=== PATIENT | male | born 1950 | race Two or more races ===

== ENCOUNTER 2023-04-19 00:47 | Emergency (ER) | payer OTHER ==
[~2023-04-19] VITALS: Ht 180.3 cm; Wt 66.8 kg
[2023-04-19] MEDS ORDERED: cloNIDine HCL 0.1 MG TAB PO ONE (01:15)
[2023-04-19] MEDS ORDERED: TETANUS-DIPTH-ACEL PERTUSSIS 0.5ML SYR Tdap IM ONE (04:45)
[2023-04-19] MEDS ORDERED: ENALAPRILAT 1.25 MG/ML-1ML VIAL IV ONE (04:45)
[2023-04-19 05:16] LABS: Basophils # (auto) 0.1 10 ^3/uL (0-0.2); Eosinophils # (auto) 0.2 10 ^3/uL (0-0.8); Hematocrit 40.1 % (41.0-53.0); Hemoglobin 13.7 g/dL (13.5-17.5); Lymphocytes # (auto) 0.5 10 ^3/uL (0.4-5.4); Lymphocytes % (auto) 10.4 % (10.0-50.0); Mean Corpuscular Hemoglobin 32.6 pg (28.0-32.0); Mean Corpuscular Hgb Conc. 34.1 g/dL (32.0-36.0); Mean Corpuscular Volume 95.6 fL (80.0-100.0); Monocytes # (auto) 0.3 10 ^3/uL (0-1.3); Monocytes % (auto) 5.2 % (0.0-12.0); Neutrophils # (auto) 3.9 10 ^3/uL (1.6-8.6); Neutrophils % (auto) 79.4 % (37.0-80.0); Red Cell Distribution Width 14.8 % (11.8-14.3)
[2023-04-19 05:26] LABS: INR 1.12 (0.9-1.15); Partial Thromboplastin Time 30.7 SEC (24.5-34.5); Prothrombin Time 11.7 sec (9.3-11.8)
[2023-04-19 05:39] LABS: Alanine Aminotransferase 22 U/L (7-40); Alkaline Phosphatase 114 U/L (46-116); Anion Gap 4 (5-15); Aspartate Aminotransferase 41 U/L (13-40); BUN/Creatinine Ratio 10.4 (10.0-20.0); Bilirubin, Total 1.2 mg/dL (0.2-1.0); Blood Urea Nitrogen 11 mg/dL (9-23); Calcium 8.7 mg/dL (8.5-10.1); Carbon Dioxide 30 mmol/L (20-30); Chloride 105 mmol/L (98-107); Glucose 97 mg/dL (74-106); Sodium 139 mmol/L (136-145); Total Protein 6.6 g/dL (5.7-8.2)
[2023-04-19 06:27] VITALS: BP 143/52; TEMP 98.2
[2023-04-19 06:30] VITALS: PULSE 53; RESP 18; O2SAT 95
[2023-04-19] MEDS ORDERED: hydrALAZINE HCL 20 MG/ML VL IV PRN (09:30)
[2023-04-19] MEDS ORDERED: DOCUSATE SOD 100 MG CAP PO PRN (09:30)
[2023-04-19] MEDS ORDERED: ACETAMINOPHEN 325 MG TAB PO PRN (09:30)
[2023-04-19] MEDS ORDERED: HYDROcodone-ACET 5/325MG TAB PO PRN (09:30)
[2023-04-19] MEDS ORDERED: ONDANSETRON HCL 4 MG/2 ML VIAL IV PRN (09:30)
[2023-04-19] MEDS ORDERED: ZINC SULFATE 220mg CAP or TAB PO SCH (10:00)
[2023-04-19] MEDS ORDERED: ASCORBIC ACID 500 MG TAB PO SCH (10:00)
[2023-04-19] MEDS ORDERED: LISINOPRIL 20 MG TAB PO SCH (10:00)
[2023-04-19] MEDS ORDERED: SODIUM CHLOR 0.9% PF (SALINE LOCK) 10ML VIAL/SYR IV SCH (14:00)
== END 2023-04-19 09:47 | disposition home or self-care (01) ==
LOC: ER 00:47
DX: S09.8XXA Other specified injuries of head, initial encounter (principal); I10 Essential (primary) hypertension; Z79.01 Long term (current) use of anticoagulants; W18.09XA Striking against other object with subsequent fall, initial encounter; Y93.89 Activity, other specified; Y92.89 Other specified places as the place of occurrence of the external cause; Y99.8 Other external cause status
CPT/HCPCS: 36415; 70450; 70486; 71045; 73140; 80053; 83735; 84484; 85025; 85610; 85730

== ENCOUNTER 2024-04-16 17:40 | Inpatient (IN) | payer OTHER ==
[~2024-04-16] VITALS: Ht 182.9 cm; Wt 58.4 kg
[2024-04-16 18:49] LABS: Basophils # (auto) 0 10 ^3/uL (0-0.2); Basophils % (auto) 0.6 % (0.0-2.0); Eosinophils # (auto) 0.1 10 ^3/uL (0-0.8); Eosinophils % (auto) 1.3 % (0.0-7.0); Hematocrit 39.9 % (41.0-53.0); Hemoglobin 13.5 g/dL (13.5-17.5); Lymphocytes # (auto) 1.3 10 ^3/uL (0.4-5.4); Lymphocytes % (auto) 19.1 % (10.0-50.0); Mean Corpuscular Hemoglobin 32.8 pg (28.0-32.0); Mean Corpuscular Hgb Conc. 33.9 g/dL (32.0-36.0); Mean Corpuscular Volume 96.8 fL (80.0-100.0); Monocytes # (auto) 0.5 10 ^3/uL (0-1.3); Monocytes % (auto) 6.8 % (0.0-12.0); Neutrophils # (auto) 5.1 10 ^3/uL (1.6-8.6); Neutrophils % (auto) 72.2 % (37.0-80.0); Platelet Count (auto) 343 10^3/uL (140-450); Red Blood Cells 4.12 10^6/uL (4.5-5.90); Red Cell Distribution Width 14.7 % (11.8-14.3)
[2024-04-16 19:09] LABS: Alanine Aminotransferase 24 U/L (7-40); Alkaline Phosphatase 347 U/L (46-116); Anion Gap 8 (5-15); Blood Urea Nitrogen 20 mg/dL (9-23); Calcium 9.2 mg/dL (8.7-10.4); Carbon Dioxide 26 mmol/L (20-31); Chloride 110 mmol/L (98-107); Glucose 119 mg/dL (74-106); Potassium 4.7 mmol/L (3.5-5.1); Sodium 144 mmol/L (136-145)
[2024-04-16 19:10] LABS: Albumin 3.3 g/dL (3.2-4.8); Aspartate Aminotransferase 38 U/L (13-40); BUN/Creatinine Ratio 21.1 (10.0-20.0); Total Protein 6.5 g/dL (5.7-8.2)
--- NOTE | 2024-04-16 20:21 | DVH ---
EXAM: CT HEAD WITHOUT CONTRAST INDICATION: aloc TECHNIQUE: CT of the head without intravenous contrast. Radiation Dose : 1. Head: CT Dose: CTDI volume is 64.67 mGy. Dose-length product is 1144.57 mGy*cm The dose indicators for CT are the volume Computed Tomography (CT) Dose Index (CTDIvol) and the Dose Length Product (DLP), and are measured in units of mGy and mGy-cm, respectively. These indicators are not patient dose, but values generated from the CT scanner acquisition factors. The report includes radiation exposure data for exposures received during this examination. COMPARISON: CT HEAD WITHOUT CONTRAST on DOS: 04/18/23 FINDINGS: There is no evidence of acute intracranial hemorrhage, extra-axial collection, mass effect, midline s hift, herniation or hydrocephalus. The ventricles, sulci and cisterns are age appropriate. The amaya-white differentiation is intact. Patchy periventricular and subcortical white matter hypoattenuation is nonspecific but may be related to small vessel ischemic disease. The visualized paranasal sinuses and mastoid air cells are clear. The surrounding soft tissues and osseous structures are unremarkable. IMPRESSION: 1. No acute intracranial abnormality. Radiation optimization: All CT scans at this facility use at least one of these dose optimization miriam hniques: automated exposure control mA and/or kV adjustment per patient size (includes targeted exam s where dose is matched to clinical indication) or iterative reconstruction.
[2024-04-16 22:00] VITALS: PULSE 83; RESP 12
[2024-04-16 23:09] LABS: Urine Bacteria None Seen /hpf (None Seen)
[2024-04-16 23:37] LABS: Amphetamine Screen, Urine Neg (NEGATIVE); Barbiturate Scree,Urine Neg (NEGATIVE); Benzodiazephine Screen, Urine Neg (NEGATIVE); Cannabinoid Screen, Urine Neg (NEGATIVE); Cocaine Screen, Urine Neg (NEGATIVE); Opiate Scree,Urine Pos (NEGATIVE); Phencyclidine Screen, Urine Neg (NEGATIVE); Urine Blood Negative /uL (Negative); Urine Clarity Clear (Clear); Urine Color Yellow (Yellow); Urine Mucus FEW (None Seen); Urine Protein, UAD Negative (Negative); Urine Specific Gravity 1.025 (1.001-1.035); Urine Urobilinogen Normal (Negative); Urine WBC <1 /hpf (0 - 3); Urine pH 5.5 (5.0-9.0)
--- NOTE | 2024-04-16 23:49 | DVH ---
CHEST RADIOGRAPH Indication: gen weak Technique: Single frontal view of the chest was obtained COMPARISON: XY CHEST PORTABLE on DOS: 04/19/23 FINDINGS: Lines and Tubes: None Lungs: Questionable mild interstitial pulmonary edema. Pleura: No effusion. No pneumothorax. Cardiomediastinal contours: Mild cardiomegaly. Bones: Unremarkable IMPRESSION: 1. Questionable mild interstitial pulmonary edema.
--- NOTE | 2024-04-17 00:52 | ED.PDOC ---
Altered Mental Status HPI Comments 73-year-old female brought in by EMS. EMS was called out to the home by family members who stated patient has been lethargic in his energy level has been decreasing over the last few days. They state it may have been going on approximate one week. With further questioning by EMS they state it could has been going on for almost a month. Patient was slow to respond, A&O x2, family states no injury. They are in control of his medications, they dispense him his medications as they have been prescribed, they do give him an opiate narcotic for his pain. Chief Complaint: General Weakness Time Seen by MD: 17:51 Primary Care Provider: unknown Reviewed Notes: Nurses Notes Allergies: Coded Allergies: NO KNOWN ALLERGIES (Unverified , 04/19/23) Information Source: Patient Mode of Arrival: EMS Past Medical History PAST MEDICAL HISTORY: HTN Constitutional: reports: fatigue, weakness; denies: chills, diaphoresis, fever, malaise, sweats, others EENTM: denies: blurred vision, double vision, ear bleeding, ear discharge, ear drainage, ear pain, ear ringing, eye pain, eye redness, hearing loss, mouth pain, mouth swelling, nasal discharge, nose bleeding, nose congestion, nose pain, photophobia, tearing, throat pain, throat swelling, voice changes, others Respiratory: denies: cough, hemoptysis, orthopnea, SOB at rest, shortness of breath, SOB with excertion, stridor, wheezing, others Cardiovascular: denies: chest pain, dizzy spells, diaphoresis, Dyspnea on exertion, edema, irregular heart beat, left arm pain, lightheadedness, palpitations, PND, syncope, others Gastrointestinal: denies: abdomen distended, abdominal pain, blood streaked bowels, constipated, diarrhea, dysphagia, difficulty swallowing, hematemesis, melena, nausea, poor appetite, poor fluid intake, rectal bleeding, rectal pain, vomiting, others Genitourinary: denies: burning, dysuria, flank pain, frequency, hematuria, incontinence, penile discharge, penile sore, pain, testicle pain, testicle swelling, urgency, others Neurological: denies: dizziness, fainting, headache, left sided numbness, left sided weakness, numbness, paresthesia, pre-existing deficit, right sided numbness, right sided weakness, seizure, speech problems, tingling, tremors, we akness, others Musculoskeletal: denies: back pain, gout, joint pain, joint swelling, muscle pain, muscle stiffness, neck pain, others Integumetry: denies: bruises, change in color, change in hair/nails, dryness, laceration, lesions, lumps, rash, wounds, others Allergic/Immunocompromised: denies: Difficulty Healing, Frequent Infections, Hives, Itching, others Hematologic/Lymphatic: denies: anemia, blood clots, easy bleeding, easy bruising, swollen glands, others Endocrine: denies: excessive hunger, excessive sweating, excessive thirst, excessive urination, flushing, intolerance to cold, intolerance to heat, unexplained weight gain, unexplained weight loss, others Psychiatric: denies: anxiety, bipolar disorder, depression, hopeless, panic disorder, schizophrenia, sleepless, suicidal, others Physical Exam General Appearance: Mild Distress, Thin HEENT: Normal ENT Inspection, Pharynx Normal, TMs Normal Neck: Full Range of Motion, Non-Tender, Normal, Normal Inspection Respiratory: Chest Non-Tender, Lungs Clear, No Accessory Muscle Use, No Respiratory Distress, Normal Breath Sounds Cardiovascular: No Edema, No JVD, No Murmur, No Gallop, Normal Peripheral Pulses, Regular Rate/Rhythm Breast Exam: Deferred Gastrointestinal: No Organomegaly, Non Tender, No Pulsatile Mass, Normal Bowel Sounds, Soft Genitalia: Deferred Pelvic: Deferred Rectal: Deferred Extremities: No calf tenderness, Normal capillary refill, Normal inspection, Normal range of motion, Non-tender, No pedal edema Musculoskeletal : Apperance: Normal Neurologic: Disoriented, No Motor Deficits Cerebellar Function: NOT DONE Reflexes: Normal Skin: Dry, Normal Color, Warm Lymphatic: No Adenopathy Was a procedure done? Was a procedure done?: No Differential Diagnosis (ALOC) Differential Diagnosis: Dehydration, Hypoglycemia, Seizure, Closed Head Injury, Mass Lesion, Drug Overdose, ETOH Intoxication X-Ray, Labs, Meds, VS Vital Signs Date Time Temp Pulse Resp B/P (MAP) Pulse Ox O2 Delivery O2 Flow Rate FiO2 04/16/24 22:00 83 12 Nasal Cannula* 3 32 04/16/24 21:18 98.8 100 19 159/99 (119) 96 98.8 04/16/24 18:56 85 04/16/24 17:49 98.0 76 16 145/86 (105) 97 Lab Test 04/16/24 23:04 04/16/24 19:29 04/16/24 18:32 Range/Units Urine Color Yellow Yellow Urine Clarity Clear Clear Urine pH 5.5 5.0-9.0 Urine Specific [place] 1.025 1.001-1.035 Urine Protein Negative Negative Urine Ketones Negative Negative Urine Blood Negative Negative /uL Urine Nitrite Negative Negative Urine Bilirubin Negative Negative Urine Urobilinogen Normal Negative mg/dL Urine Leukocyte Esterase Negative Negative /uL Urine RBC 1 0 - 3 /hpf Urine WBC <1 0 - 3 /hpf Urine Squamous Epithelial Cells None seen <5 /hpf Urine Bacteria None seen None Seen /hpf Urine Mucus Few None Seen Urine Glucose Normal Normal mg/dL Urine Opiates Screen Pos NEGATIVE Urine Fentanyl Screen Neg NEGATIVE Urine Barbiturates Screen Neg NEGATIVE Urine Phencyclidine Screen Neg NEGATIVE Urine Amphetamines Screen Neg NEGATIVE Urine Benzodiazepines Screen Neg NEGATIVE Urine Cocaine Screen Neg NEGATIVE Urine Cannabinoids Screen Neg NEGATIVE Troponin I High Sensitivity 32 32 </=54 ng/L White Blood Count 7.0 4.4-10.8 10^3/uL Red Blood Count 4.12 L 4.5-5.90 10^6/uL Hemoglobin 13.5 13.5-17.5 g/dL Hematocrit 39.9 L 41.0-53.0 % Mean Corpuscular Volume 96.8 80.0-100.0 fL Mean Corpuscular Hemoglobin 32.8 H 28.0-32.0 pg Mean Corpuscular Hemoglobin Concent 33.9 32.0-36.0 g/dL Red Cell Distribution Width 14.7 H 11.8-14.3 % Platelet Count 343 140-450 10^3/uL Mean Platelet Volume 8.3 6.9-10.8 fL Neutrophils (%) (Auto) 72.2 37.0-80.0 % Lymphocytes (%) (Auto) 19.1 10.0-50.0 % Monocytes (%) (Auto) 6.8 0.0-12.0 % Eosinophils (%) (Auto) 1.3 0.0-7.0 % Basophils (%) (Auto) 0.6 0.0-2.0 % Neutrophils # (Auto) 5.1 1.6-8.6 10 ^3/uL Lymphocytes # (Auto) 1.3 0.4-5.4 10 ^3/uL Monocytes # (Auto) 0.5 0-1.3 10 ^3/uL Eosinophils # (Auto) 0.1 0-0.8 10 ^3/uL Basophils # (Auto) 0 0-0.2 10 ^3/uL Nucleated Red Blood Cells 0.0 % Sodium Level 144 136-145 mmol/L Potassium Level 4.7 3.5-5.1 mmol/L Chloride Level 110 H 98-107 mmol/L Carbon Dioxide Level 26 20-31 mmol/L Anion Gap 8 5-15 Blood Urea Nitrogen 20 9-23 mg/dL Creatinine 0.95 0.700-1.30 mg/dL Glomerular Filtration Rate Calc 83 >90 mL/min BUN/Creatinine Ratio 21.1 H 10.0-20.0 Serum Glucose 119 H 74-106 mg/dL Calcium Level 9.2 8.7-10.4 mg/dL Total Bilirubin 1.0 0.2-1.0 mg/dL Aspartate Amino Transferase (AST) 38 13-40 U/L Alanine Aminotransferase (ALT) 24 7-40 U/L Alkaline Phosphatase 347 H 46-116 U/L Ammonia < 10 L 11-32 umol/L Total Protein 6.5 5.7-8.2 g/dL Albumin 3.3 3.2-4.8 g/dL X-Ray, Labs, Meds, VS Comment Patient will be admitted for altered mental status, Recommend nausea consult Imaging: X-rays and CT scans were reviewed and interpreted by this provider, imaging shows no fractures and no pathological disease. Pending radiology review. Laboratory: Labs reviewed and interpreted by this provider. No significant abnormalities noted. Patient has prior medical visits reviewed. Med reconciliation performed Vital signs reviewed Time of 1ST Reevaluation: 00:52 Reevaluation 1ST: Unchanged Patient Education/Counseling: Diagnosis, Treatment Family Education/Counseling: Diagnosis, Treatment Departure 1 Departure Time of Disposition: 00:51 Impression: Primary Impression: Malignant hypertension Additional Impression: Altered mental status Qualified Codes: R41.0 - Disorientation, unspecified Disposition: ADMITTED INPATIENT Condition: Fair Critical Care Note Critical Care Time?: No Stability Stability form required: No Heart Score Heart Score: Heart Score Response (Comments) Value History N/A 0 EKG N/A 0 Age N/A 0 Risk Factors N/A 0 Troponin N/A 0 Total 0 RADHA MANN Apr 17, 2024 00:52
[2024-04-17] MEDS ORDERED: ONDANSETRON HCL 4 MG/2 ML VIAL IV PRN (04:00)
[2024-04-17] MEDS: METOPROLOL SUCCINATE XL 50 MG TAB PO ONE (04:09)
[2024-04-17] MEDS: cloNIDine HCL 0.1 MG TAB PO PRN (04:10)
--- NOTE | 2024-04-17 07:03 | DVHHP2 ---
History of Present Illness Reason for Visit: Altered mental status History of Present Illness 73-year-old male presents for evaluation of altered mental status. Patient was noted to be progressively become lethargic by family members over the past couple of days. Currently patient is alert oriented x3. Denies headache or blurred vision. No unilateral weakness. He was noted to be hypertensive on arrival in the 180s. Denies chest pain or palpitations. No other acute complaints. Past Medical History Hypertension Past Surgical History Denies Family History Noncontributory Smoke: No ALCOHOL: none Drugs: None Review of Systems Review of Systems Review of systems are currently negative otherwise dressing HPI. Allergies: Coded Allergies: NO KNOWN ALLERGIES (Unverified , 04/19/23) Medications Current Medications Medications Dose Ordered Sig/Tab Route Start Time Stop Time Status Last Admin Dose Admin Lisinopril 10 mg DAILY PO 04/17/24 10:00 Clonidine HCl 0.1 mg Q6HP PRN PO 04/17/24 04:00 04/17/24 04:10 0.1 MG Ondansetron HCl 4 mg Q4HP PRN IV 04/17/24 04:00 Enoxaparin Sodium 40 mg DAILY SC 04/17/24 10:00 Acetaminophen 650 mg Q6HP PRN PO 04/17/24 04:00 Exam Vital Signs Vital Signs Date Time Temp Pulse Resp B/P (MAP) Pulse Ox O2 Delivery O2 Flow Rate FiO2 04/17/24 06:00 143/70 04/17/24 06:00 83 19 04/17/24 02:00 97 04/16/24 22:00 Nasal Cannula* 3 32 04/16/24 21:18 98.8 98.8 Exam Gen: 73-year-old male in no apparent distress Skin: Warm, dry, normal color and texture, no rash. HEENT: Normocephalic atraumatic, mucous membranes moist and pink. Neck: Cervical and supraclavicular nodes normal without enlargement, trachea is midline, thyroid gland is normal without masses. Pulmonary: Clear to auscultation and percussion bilaterally. Cardiac: Regular rate and rhythm. No murmur Abdomen: Soft, nontender, nondistended, bowel sounds present all 4 quadrants, no guarding, no rigidity, no organomegaly. Extremities: No cyanosis, clubbing, no edema Neuro: Cranial nerves II through XII grossly intact, normal affect and speech, no focal motor deficits. Labs/Xrays ORDERING PHYSICIAN: RADHA MANN PATIENT ADMITTING CLERK PROCEDURE(s): HWOCT - HEAD WITHOUT CONTRAST REASON: aloc ORDER NUMBER(s): [id number], ACCESSION NUMBER(s): [id number] EXAM: CT HEAD WITHOUT CONTRAST INDICATION: aloc TECHNIQUE: CT of the head without intravenous contrast. Radiation Dose : 1. Head: CT Dose: CTDI volume is 64.67 mGy. Dose-length product is 1144.57 mGy*cm The dose indicators for CT are the volume Computed Tomography (CT) Dose Index (CTDIvol) and the Dose Length Product (DLP), and are measured in units of mGy and mGy-cm, respectively. These indicators are not patient dose, but values generated from the CT scanner acquisition factors. The report includes radiation exposure data for exposures received during this examination. COMPARISON: CT HEAD WITHOUT CONTRAST on DOS: 04/18/23 FINDINGS: There is no evidence of acute intracranial hemorrhage, extra-axial collection, mass effect, midline shift, herniation or hydrocephalus. The ventricles, sulci and cisterns are age appropriate. The amaya-white differentiation is intact. Patchy periventricular and subcortical white matter hypoattenuation is nonspecific but may be related to small vessel ischemic disease. The visualized paranasal sinuses and mastoid air cells are clear. The surrounding soft tissues and osseous structures are unremarkable. IMPRESSION: 1. No acute intracranial abnormality. Radiation optimization: All CT scans at this facility use at least one of these dose optimization techniques: automated exposure control mA and/or kV adjustmen t per patient size (includes targeted exams where dose is matched to clinical indication) or iterative reconstruction. RING PHYSICIAN: RADHA MANN PATIENT ADMITTING CLERK PROCEDURE(s): CXR1 - CHEST XRAY 1 VIEW REASON: gen weak ORDER NUMBER(s): [id number], ACCESSION NUMBER(s): [id number] CHEST RADIOGRAPH Indication: gen weak Technique: Single frontal view of the chest was obtained COMPARISON: XY CHEST PORTABLE on DOS: 04/19/23 FINDINGS: Lines and Tubes: None Lungs: Questionable mild interstitial pulmonary edema. Pleura: No effusion. No pneumothorax. Cardiomediastinal contours: Mild cardiomegaly. Bones: Unremarkable IMPRESSION: 1. Questionable mild interstitial pulmonary edema. Labs Test 04/17/24 04:11 04/16/24 23:04 04/16/24 19:29 04/16/24 18:32 Range/Units B-Type Natriuretic Peptide 881.24 0-100 pg/mL Urine Color Yellow Yellow Urine Clarity Clear Clear Urine pH 5.5 5.0-9.0 Urine Specific [place] 1.025 1.001-1.035 Urine Protein Negative Negative Urine Ketones Negative Negative Urine Blood Negative Negative /uL Urine Nitrite Negative Negative Urine Bilirubin Negative Negative Urine Urobilinogen Normal Negative mg/dL Urine Leukocyte Esterase Negative Negative /uL Urine RBC 1 0 - 3 /hpf Urine WBC <1 0 - 3 /hpf Urine Squamous Epithelial Cells None seen <5 /hpf Urine Bacteria None seen None Seen /hpf Urine Mucus Few None Seen Urine Glucose Normal Normal mg/dL Urine Opiates Screen Pos NEGATIVE Urine Fentanyl Screen Neg NEGATIVE Urine Barbiturates Screen Neg NEGATIVE Urine Phencyclidine Screen Neg NEGATIVE Urine Amphetamines Screen Neg NEGATIVE Urine Benzodiazepines Screen Neg NEGATIVE Urine Cocaine Screen Neg NEGATIVE Urine Cannabinoids Screen Neg NEGATIVE Troponin I High Sensitivity 32 </=54 ng/L White Blood Count 7.0 4.4-10.8 10^3/uL Red Blood Count 4.12 L 4.5-5.90 10^6/uL Hemoglobin 13.5 13.5-17.5 g/dL Hematocrit 39.9 L 41.0-53.0 % Mean Corpuscular Volume 96.8 80.0-100.0 fL Mean Corpuscular Hemoglobin 32.8 H 28.0-32.0 pg Mean Corpuscular Hemoglobin Concent 33.9 32.0-36.0 g/dL Red Cell Distribution Width 14.7 H 11.8-14.3 % Platelet Count 343 140-450 10^3/uL Mean Platelet Volume 8.3 6.9-10.8 fL Neutrophils (%) (Auto) 72.2 37.0-80.0 % Lymphocytes (%) (Auto) 19.1 10.0-50.0 % Monocytes (%) (Auto) 6.8 0.0-12.0 % Eosinophils (%) (Auto) 1.3 0.0-7.0 % Basophils (%) (Auto) 0.6 0.0-2.0 % Neutrophils # (Auto) 5.1 1.6-8.6 10 ^3/uL Lymphocytes # (Auto) 1.3 0.4-5.4 10 ^3/uL Monocytes # (Auto) 0.5 0-1.3 10 ^3/uL Eosinophils # (Auto) 0.1 0-0.8 10 ^3/uL Basophils # (Auto) 0 0-0.2 10 ^3/uL Nucleated Red Blood Cells 0.0 % Sodium Level 144 136-145 mmol/L Potassium Level 4.7 3.5-5.1 mmol/L Chloride Level 110 H 98-107 mmol/L Carbon Dioxide Level 26 20-31 mmol/L Anion Gap 8 5-15 Blood Urea Nitrogen 20 9-23 mg/dL Creatinine 0.95 0.700-1.30 mg/dL Glomerular Filtration Rate Calc 83 >90 mL/min BUN/Creatinine Ratio 21.1 H 10.0-20.0 Serum Glucose 119 H 74-106 mg/dL Calcium Level 9.2 8.7-10.4 mg/dL Total Bilirubin 1.0 0.2-1.0 mg/dL Aspartate Amino Transferase (AST) 38 13-40 U/L Alanine Aminotransferase (ALT) 24 7-40 U/L Alkaline Phosphatase 347 H 46-116 U/L Ammonia < 10 L 11-32 umol/L Total Protein 6.5 5.7-8.2 g/dL Albumin 3.3 3.2-4.8 g/dL Assessment/Plan Assessment/Plan Assessment Hypertensive crisis ? Toxic encephalopathy Pulmonary edema Plan Admit the patient to [facility] to the hospitalist Resume home medications Echocardiogram pending Continue treatment per orders. Plan discussed with: Patient My Orders Orders - STAR JARAMILLO AGACNP Procedure Category Date Status Time Lisinopril Tablet PHA 04/17/24 In Process (Zestril Tablet) 10:00 Echo 2d Mode Cardiac US 04/17/24 Logged DOP 03:50 Clonidine Hcl Tablet PHA 04/17/24 In Process (Catapres Tablet) 04:00 Basic Metabolic Panel LAB 04/18/24 Verified 04:00 Admit ADMIT 04/17/24 Transmitted 03:50 Ondansetron Hcl PHA 04/17/24 In Process (Zofran) 04:00 Enoxaparin Sodium PHA 04/17/24 In Process (Lovenox) 10:00 Cardiac DIET 04/17/24 Transmitted Diet-2gna,Lofat,Lochol Breakfast Condition: Stable AVINASH 04/17/24 In Process 03:50 Acetaminophen Tablet PHA 04/17/24 In Process (Tylenol Tablet) 04:00 Bedrest With Bathroom AVINASH 04/17/24 In Process Privileg 03:50 Date of Service: Apr 17, 2024 Billing Provider: STAR JARAMILLO Common Visit Codes: 20324-[id number] INP/OBS CARE (HIGH) STAR JARAMILLO Apr 17, 2024 07:03
[2024-04-17 08:30] VITALS: PULSE 83; RESP 17; O2SAT 96
[2024-04-17] MEDS: LISINOPRIL 5 MG TAB PO SCH (11:47)
[2024-04-17] MEDS: ENOXAPARIN SOD 40 MG/0.4 ML SYRINGE SC SCH (11:48)
[2024-04-17] MEDS: FUROSEMIDE 20 MG TAB PO SCH (11:48)
[2024-04-17] MEDS: ACETAMINOPHEN 325 MG TAB PO PRN (11:49)
--- NOTE | 2024-04-17 14:38 | ECG ---
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
--- NOTE | 2024-04-17 14:44 | ECG ---
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
--- NOTE | 2024-04-17 14:49 | DVHSR ---
APPROVED REPORT EXAM: Two-dimensional and M-mode echocardiogram with Doppler and color Doppler. Blood Pressure: 162/96 mmHg INDICATION EF Surgery/Intervention CABG: RISK FACTORS Height: 6', Weight: 165 DIMENSIONS LVDd5.4 (3.8-5.7cm)LA (2D)4.8 (1.9-4.0cm)Aortic Root3.8 (2.0-3.7cm) LVDs4.4 (2.5-4.0cm)LA (MM) (1.9-4.0cm)Aortic Cusp Exc1.8 (1.5-2.0cm) EF (%) 40.0 (55-70%)Rt. Atrium5.1 (1.9-4.0cm)Asc. Aorta cm IVSd1.4 (0.7-1.1cm)RV (D) (1.8-2.4cm) PWd1.2 (0.7-1.1cm) Mitral Valve MitralMitral Stenosis E wave1.30m/sMV Mean GR.mmHg A wave0.60m/sMV Peak GR.mmHg E/A ratio2.22D MVAcm2 Aortic Valve Aortic ValveAortic Stenosis V10.80m/[place] Mean GR.4mmHg V21.30m/[place] Peak GR.7mmHg LVOT Diameter2.2 (1.8-2.4cm)Doppler AVA2.34cm2 AI P 1/2 Tbuf449.80ms Tricuspid Valve TR Velocity3.20m/s [id number] Conclusion Moderately to severely dilated left ventricle. Moderately reduced left ventricular systolic function estimated ejection fraction 40-35%. In a global fashion. There is a grade 1 diastolic dysfunction. Moderately dilated right ventricle. Moderately reduced right ventricular systolic function. Mild-to -moderately increased right ventricular systolic [id number] mm of mercury. Moderately dilated right and left atria. There is mild mitral valve thickening with mild mitral valve regurgitation. There is mild aortic valve thickening with a mild aortic valve regurgitation. There is mild tricuspid valve regurgitation. The pulmonary valve is grossly normal. No pericardial effusion.
--- NOTE | 2024-04-17 15:44 | DVHPN2 ---
Subjective Patient denies any symptoms at this time. Reviewed: Care Plan, H&P, Labs, Medications, Previous Orders Changes from previous H/P or p: No Changes General: Per HPI Objective Vitals Vital Signs Date Time Temp Pulse Resp B/P (MAP) Pulse Ox O2 Delivery O2 Flow Rate FiO2 04/17/24 11:48 172/77 04/17/24 09:00 89 20 98 04/17/24 08:30 Room Air* 0 21 04/16/24 21:18 98.8 98.8 General Appearance: Alert, Oriented X3, Cooperative, No acute distress HEENT: Atraumatic, PERRLA Lungs: Clear to auscultation, Normal air movement Cardiovascular: Normal S1, Normal S2, Other (Atrial flutter with controlled rate) Abdomen: Normal bowel sounds, Soft, No tenderness Musculoskeletal: Normal sensory function, Normal motor function Neuro: Normal gait, Normal speech Psych/Mental Status: Mental status NL, Mood NL Medications Current Medications Medications Dose Ordered Sig/Tab Route Start Time Stop Time Status Last Admin Dose Admin Lisinopril 10 mg DAILY PO 04/17/24 10:00 04/17/24 11:47 10 MG Clonidine HCl 0.1 mg Q6HP PRN PO 04/17/24 04:00 04/17/24 04:10 0.1 MG Ondansetron HCl 4 mg Q4HP PRN IV 04/17/24 04:00 Enoxaparin Sodium 40 mg DAILY SC 04/17/24 10:00 04/17/24 11:48 40 MG Acetaminophen 650 mg Q6HP PRN PO 04/17/24 04:00 04/17/24 11:49 650 MG Furosemide 20 mg DAILY PO 04/17/24 10:00 04/17/24 11:48 20 MG Metoprolol Succinate 25 mg DAILY PO 04/17/24 14:45 UNV Furosemide 20 mg DAILY PO 04/18/24 10:00 UNV Empaglifozin 10 mg DAILY PO 04/18/24 10:00 UNV Laboratory Results Laboratory Tests 04/16/24 18:32 Chemistry Test 04/16/24 18:32 Albumin 3.3 g/dL (3.2-4.8) Calcium Level 9.2 mg/dL (8.7-10.4) Total Protein 6.5 g/dL (5.7-8.2) Cardiac Markers Test 04/17/24 04:11 B-Type Natriuretic Peptide 881.24 pg/mL (0-100) LFT Test 04/16/24 18:32 Alanine Aminotransferase (ALT) 24 U/L (7-40) Alkaline Phosphatase 347 U/L (46-116) H Aspartate Amino Transferase (AST) 38 U/L (13-40) Total Bilirubin 1.0 mg/dL (0.2-1.0) Urinalysis Test 04/16/24 23:04 Urine Color Yellow (Yellow) Urine Clarity Clear (Clear) Urine pH 5.5 (5.0-9.0) Urine Specific [place] 1.025 (1.001-1.035) Urine Protein Negative (Negative) Urine Ketones Negative (Negative) Urine Blood Negative /uL (Negative) Urine Nitrite Negative (Negative) Urine Bilirubin Negative (Negative) Urine Urobilinogen Normal mg/dL (Negative) Urine Leukocyte Esterase Negative /uL (Negative) Urine RBC 1 /hpf (0 - 3) Urine WBC <1 /hpf (0 - 3) Urine Squamous Epithelial Cells None seen /hpf (<5) Urine Bacteria None seen /hpf (None Seen) Urine Mucus Few (None Seen) Urine Glucose Normal mg/dL (Normal) Labs and/or images reviewed: Labs reviewed by me, Image(s) reviewed by me Assessment/Plan Assessment/Plan Impression: -toxic metabolic encephalopathy, probable unintentional overdose on prescribed medications -chronic pain syndrome -coronary artery disease with previous CABG -atrial flutter -probable acute on chronic systolic heart failure -accelerated hypertension Plan: -cardiology consultation for decompensated heart failure -diuresis -rate control with Toprol-XL -restart Eliquis -echocardiogram: Results reviewed -restart pain medication now the patient was alert and oriented -start Jardiance -repeat labs and chest x-ray in a.m. Total time spent with patient discussing and formulating plan of care: 35 minutes. This medical document was created using an electronic medical record system with [employer] dictation system. Although this document has been carefully reviewed, there may still be some phonetic and typographical errors. These areas are purely typographical due to imperfections of the software programs, and do not reflect any compromise in the patient's medical care. Plan discussed with: Patient, Other (RN) My Orders Orders - LIAT IGNACIO [employer]SP[employer]ER COLUMNIST Procedure Category Date Status Time Metoprolol Xl PHA 04/17/24 Logged Succinate (Toprol Xl) 14:45 Furosemide Tablet PHA 04/18/24 Logged (Lasix Tablet) 10:00 * Cardiology Consult CONS 04/17/24 Transmitted 14:42 Empagliflozin PHA 04/18/24 Logged (Jardiance) 10:00 Date of Service: Apr 17, 2024 Billing Provider: LIAT IGNACIO NP Common Visit Codes: [id number] INP/OBS CARE(HIGH) LIAT IGNACIO NP Apr 17, 2024 15:44
--- NOTE | 2024-04-17 16:54 | DVHINCON2 ---
Date Seen: Apr 17, 2024 Referring Physician Kari Santoyo NP Reason for Consultation Heart failure decompensation History of Present Illness This is a 73-year-old gentleman who was brought into the hospital by his family with altered mental status and lethargy for the past one week or so. On presentation his blood pressure was elevated at 180 systolic. He is known to have coronary artery bypass graft surgery x5 many years back. Also known to have chronic paroxysmal atrial fibrillation for which he is on rate-controlling strategy with the metoprolol as well as Eliquis5 mg twice daily. Also suffers from hypertension as well as hyperlipidemia, who has chronic pain for which he takes multiple medications including codeine and acetaminophen. His initial workup including a CT scan of the brain which was negative for acute brain insult. However his tox screen came back positive for opioid. Patient lab works shows mildly elevated BNP at 800. But negative troponin his EKG shows well controlled AFib rate of 80 with nonspecific STT wave changes. Patient denies any chest pain or shortness of breath. However he is still lethargic and difficult to arouse at the bedside. Past Medical History Ischemic heart disease with a coronary artery bypass grafting x5 long time ago, history of hypertension, history of hyperlipidemia, history of atrial fibrillation for which he is on metoprolol and Eliquis5 mg twice daily. His echocardiogram for mandates most recent admission shows moderately reduced left ventricular systolic function at 45% in a global fashion. Without significant valve pathology. He has also pulmonary hypertension at 45 mm of mercury. Past Surgical History Coronary artery bypass graft surgery. Allergies: Coded Allergies: NO KNOWN ALLERGIES (Unverified , 04/19/23) Current Medications Current Medications Medications (Trade) Dose Ordered Sig/Tab Route PRN Reason Start Time Stop Time Status Last Admin Lisinopril (Zestril Tablet) 10 mg DAILY PO 04/17/24 10:00 04/17/24 11:47 Clonidine HCl (Catapres Tablet) 0.1 mg Q6HP PRN PO SBP>160 04/17/24 04:00 04/17/24 04:10 Ondansetron HCl (Zofran) 4 mg Q4HP PRN IV NAUSEA / VOMITING 04/17/24 04:00 Enoxaparin Sodium (Lovenox) 40 mg DAILY SC 04/17/24 10:00 04/17/24 11:48 Acetaminophen (Tylenol Tablet) 650 mg Q6HP PRN PO PAIN SCALE 1-3 OR TEMP>100.4 04/17/24 04:00 04/17/24 11:49 Furosemide (Lasix Tablet) 20 mg DAILY PO 04/17/24 10:00 04/17/24 11:48 Metoprolol Succinate (Toprol Xl) 25 mg DAILY PO 04/17/24 14:45 UNV Furosemide (Lasix Tablet) 20 mg DAILY PO 04/18/24 10:00 UNV Empaglifozin (Jardiance) 10 mg DAILY PO 04/18/24 10:00 UNV Apixaban (Eliquis) 5 mg BID PO 04/17/24 22:00 UNV Acetaminophen/ Hydrocodone Bitart ([place] 5/325MG Tab) 1 tab Q6HPRN PRN PO MODERATE PAIN (4-6 PAIN SCALE) 04/17/24 15:45 UNV Acetaminophen (Tylenol Tablet) 500 mg Q8HP PRN PO PAIN SCALE 1-3 OR TEMP>100.4 04/17/24 15:45 UNV Vital Signs Vital Signs Date Time Temp Pulse Resp B/P (MAP) Pulse Ox O2 Delivery O2 Flow Rate FiO2 04/17/24 13:00 78 19 148/72 (97) 97 04/17/24 08:30 Room Air* 0 21 04/16/24 21:18 98.8 98.8 Physical Exam GENERAL APPEARANCE: Patient appears cachectic very lethargic difficult to communicate with the despite multiple attempts to call him by his name. He is arousable to painful stimulus. HEENT: Normocephalic NECK: Neck supple, non-tender without lymphadenopathy, masses or thyromegaly. CARDIAC: Normal S1 and S2. No S3, S4 or murmurs. Rhythm is regular. There is no peripheral edema, cyanosis or pallor. Extremities are warm and well perfused. Capillary refill is less than 2 seconds. No carotid bruits. LUNGS: Clear to auscultation and percussion there is mild rales and rhonchi scattered throughout the chest. ABDOMEN: Positive bowel sounds. Soft, mildly distended, nontender. No guarding or rebound. No masses. MUSCULOSKELETAL: Adequately aligned spine. ROM intact spine and extremities. No joint erythema or tenderness. Normal muscular development. Normal gait. EXTREMITIES: No significant deformity or joint abnormality. No edema. Peripheral pulses intact. No varicosities. NEUROLOGICAL: CN II-XII intact. Strength and sensation symmetric and intact throughout. Reflexes 2+ throughout. Cerebellar testing normal. SKIN: Skin normal color, texture and turgor with no lesions or eruptions. Labs/Diagnostic Data Labs Test 04/17/24 04:11 04/16/24 23:04 04/16/24 19:29 04/16/24 18:32 Range/Units B-Type Natriuretic Peptide 881.24 0-100 pg/mL Urine Color Yellow Yellow Urine Clarity Clear Clear Urine pH 5.5 5.0-9.0 Urine Specific [place] 1.025 1.001-1.035 Urine Protein Negative Negative Urine Ketones Negative Negative Urine Blood Negative Negative /uL Urine Nitrite Negative Negative Urine Bilirubin Negative Negative Urine Urobilinogen Normal Negative mg/dL Urine Leukocyte Esterase Negative Negative /uL Urine RBC 1 0 - 3 /hpf Urine WBC <1 0 - 3 /hpf Urine Squamous Epithelial Cells None seen <5 /hpf Urine Bacteria None seen None Seen /hpf Urine Mucus Few None Seen Urine Glucose Normal Normal mg/dL Urine Opiates Screen Pos NEGATIVE Urine Fentanyl Screen Neg NEGATIVE Urine Barbiturates Screen Neg NEGATIVE Urine Phencyclidine Screen Neg NEGATIVE Urine Amphetamines Screen Neg NEGATIVE Urine Benzodiazepines Screen Neg NEGATIVE Urine Cocaine Screen Neg NEGATIVE Urine Cannabinoids Screen Neg NEGATIVE Troponin I High Sensitivity 32 </=54 ng/L White Blood Count 7.0 4.4-10.8 10^3/uL Red Blood Count 4.12 L 4.5-5.90 10^6/uL Hemoglobin 13.5 13.5-17.5 g/dL Hematocrit 39.9 L 41.0-53.0 % Mean Corpuscular Volume 96.8 80.0-100.0 fL Mean Corpuscular Hemoglobin 32.8 H 28.0-32.0 pg Mean Corpuscular Hemoglobin Concent 33.9 32.0-36.0 g/dL Red Cell Distribution Width 14.7 H 11.8-14.3 % Platelet Count 343 140-450 10^3/uL Mean Platelet Volume 8.3 6.9-10.8 fL Neutrophils (%) (Auto) 72.2 37.0-80.0 % Lymphocytes (%) (Auto) 19.1 10.0-50.0 % Monocytes (%) (Auto) 6.8 0.0-12.0 % Eosinophils (%) (Auto) 1.3 0.0-7.0 % Basophils (%) (Auto) 0.6 0.0-2.0 % Neutrophils # (Auto) 5.1 1.6-8.6 10 ^3/uL Lymphocytes # (Auto) 1.3 0.4-5.4 10 ^3/uL Monocytes # (Auto) 0.5 0-1.3 10 ^3/uL Eosinophils # (Auto) 0.1 0-0.8 10 ^3/uL Basophils # (Auto) 0 0-0.2 10 ^3/uL Nucleated Red Blood Cells 0.0 % Sodium Level 144 136-145 mmol/L Potassium Level 4.7 3.5-5.1 mmol/L Chloride Level 110 H 98-107 mmol/L Carbon Dioxide Level 26 20-31 mmol/L Anion Gap 8 5-15 Blood Urea Nitrogen 20 9-23 mg/dL Creatinine 0.95 0.700-1.30 mg/dL Glomerular Filtration Rate Calc 83 >90 mL/min BUN/Creatinine Ratio 21.1 H 10.0-20.0 Serum Glucose 119 H 74-106 mg/dL Calcium Level 9.2 8.7-10.4 mg/dL Total Bilirubin 1.0 0.2-1.0 mg/dL Aspartate Amino Transferase (AST) 38 13-40 U/L Alanine Aminotransferase (ALT) 24 7-40 U/L Alkaline Phosphatase 347 H 46-116 U/L Ammonia < 10 L 11-32 umol/L Total Protein 6.5 5.7-8.2 g/dL Albumin 3.3 3.2-4.8 g/dL Assessment 1. Acute altered mental status, that has been progressively worsening over the past one week likely multifactorial I would think that patient chronic pain medication is the main responsible for patient altered mental status. In the meantime other subtle causes like infections subacute stroke could be a reason for his presentation I would recommend neurological evaluation and doing MRI of the brain just to be sure there is no acute evolutionary changes. 2. Mild decompensated heart failure, with the elevated BNP I would recommend gentle diuresis and continuation of current medical therapy including Entresto, in addition to metoprolol, Jardiance, and Aldactone if tolerated. 3. Atrial fibrillation chronic with a well-controlled heart rate we will continue metoprolol and Eliquis5 mg twice daily. 4. Chronic pain syndrome with a excessive opioid intake I would recommend pain management involvement and consideration of weaning off opioids to other breakthrough medications for pain control. Plan/Recommendation 1. Decompensated heart failure As mentioned above we will resume anti heart failure treatment in addition to high-dose statins . Patient would need gentle diuresis. With the daily comprehensive metabolic panel assessment and weight measurement. 2. Patient's lethargy would need assessment by Neurology patient needs an MRI to rule out subacute stroke, in addition to assessment of neurological status as patient looks really depressed. 3. Atrial fibrillation we will recommend continuation of anticoagulation rate control strategy. Plan discussed with: Patient NYHA Physical activity limitations: Class2(Slight)fatigue,sob (palpitatns, angina w activityv) Date of Service: Apr 17, 2024 Billing Provider: GIULIANA GRECO MD Cardiology Common Codes: [id number] CARE 30-74 MIN Cardiology Consultation Codes: [id number] CONSULT <80MIN GIULIANA GRECO MD Apr 17, 2024 16:54
[2024-04-17] MEDS: METOPROLOL SUCCINATE XL 50 MG TAB PO SCH (18:00)
[2024-04-17] MEDS: FUROSEMIDE 40 MG TAB PO ONE (18:45)
[2024-04-17] MEDS: METOPROLOL TARTRATE 25 MG TAB PO ONE (18:47)
[2024-04-17] MEDS: HYDROcodone-ACET 5/325MG TAB PO PRN (18:48)
[2024-04-17 19:34] VITALS: PULSE 78; RESP 17; O2SAT 99
[2024-04-17 21:52] VITALS: BP 164/88; PULSE 82; RESP 16; TEMP 98.5; O2SAT 97
[2024-04-17] MEDS: SACUBITRIL-VALSARTAN 24mg/26mg TAB PO SCH (22:32)
[2024-04-17] MEDS: APIXABAN 5 MG TAB PO SCH (22:32)
[2024-04-18] VITALS (8 sets, daily range): BP systolic 126–155; BP diastolic 73–97; PULSE 50–87; RESP 16–19; TEMP 97.5–98.3; O2SAT 95–98
[2024-04-18 05:39] LABS: Chloride 104 mmol/L (98-107); Potassium 3.5 mmol/L (3.5-5.1); Sodium 139 mmol/L (136-145)
[2024-04-18 05:40] LABS: Anion Gap 6 (5-15); Carbon Dioxide 29 mmol/L (20-31)
[2024-04-18 05:41] LABS: Calcium 8.6 mg/dL (8.7-10.4)
[2024-04-18 05:45] LABS: BUN/Creatinine Ratio 19.2 (10.0-20.0); Blood Urea Nitrogen 15 mg/dL (9-23); Glucose 101 mg/dL (74-106)
--- NOTE | 2024-04-18 06:32 | DVH ---
CHEST RADIOGRAPH Indication: chf Technique: Single frontal view of the chest was obtained Comparison: XY CHEST XRAY 1 VIEW on DOS: 04/16/24 FINDINGS: Lines and Tubes: None Lungs: Mild interstitial prominence. No focal consolidation. Pleura: No effusion. No pneumothorax. Cardiomediastinal contours: Unremarkable Bones: No acute osseous abnormality. IMPRESSION: 1. Mild pulmonary congestion.
[2024-04-18] MEDS ORDERED: EMPAGLIFLOZIN 10 MG TAB PO SCH (10:00)
[2024-04-18] MEDS: EMPAGLIFLOZIN 10 MG TAB PO SCH (10:04)
[2024-04-18] MEDS: FUROSEMIDE 20 MG TAB PO SCH (10:07)
--- NOTE | 2024-04-18 15:17 | DVHPN2 ---
Subjective Patient denies any symptoms at this time. Reviewed: Care Plan, H&P, Labs, Medications, Previous Orders Changes from previous H/P or p: No Changes General: Per HPI Objective Vitals Vital Signs Date Time Temp Pulse Resp B/P (MAP) Pulse Ox O2 Delivery O2 Flow Rate FiO2 04/18/24 12:30 97.6 52 18 144/83 (103) 97 97.6 04/18/24 08:00 Room Air* 0 21 Intake/Output Intake and Output 04/18/24 07:00 Intake Total 240 ml Output Total 1500 ml Balance -1260 ml Intake Oral 240 ml Output Urine Total 1500 ml General Appearance: Alert, Oriented X3, Cooperative, No acute distress HEENT: Atraumatic, PERRLA Lungs: Clear to auscultation, Normal air movement Cardiovascular: Normal S1, Normal S2, Other (Atrial flutter with controlled rate) Abdomen: Normal bowel sounds, Soft, No tenderness Musculoskeletal: Normal sensory function, Normal motor function Neuro: Normal gait, Normal speech Psych/Mental Status: Mental status NL, Mood NL Medications Current Medications Medications Dose Ordered Sig/Tab Route Start Time Stop Time Status Last Admin Dose Admin Clonidine HCl 0.1 mg Q6HP PRN PO 04/17/24 04:00 04/17/24 23:42 0.1 MG Ondansetron HCl 4 mg Q4HP PRN IV 04/17/24 04:00 Enoxaparin Sodium 40 mg DAILY SC 04/17/24 10:00 04/18/24 10:07 40 MG Metoprolol Succinate 25 mg DAILY PO 04/17/24 14:45 04/18/24 10:06 25 MG Furosemide 20 mg DAILY PO 04/18/24 10:00 04/18/24 10:07 20 MG Apixaban 5 mg BID PO 04/17/24 22:00 04/18/24 10:04 5 MG Acetaminophen/ Hydrocodone Bitart 1 tab Q6HPRN PRN PO 04/17/24 15:45 04/18/24 13:32 1 TAB Acetaminophen 500 mg Q8HP PRN PO 04/17/24 15:45 Sacubitril/ Valsartan 1 tab BID PO 04/17/24 22:00 04/18/24 10:04 1 TAB Empaglifozin 10 mg DAILY PO 04/18/24 10:00 04/18/24 10:04 10 MG Laboratory Results Laboratory Tests 04/16/24 18:32 04/18/24 04:44 Chemistry Test 04/18/24 04:44 Calcium Level 8.6 mg/dL (8.7-10.4) L Urinalysis Test 04/16/24 23:04 Urine Color Yellow (Yellow) Urine Clarity Clear (Clear) Urine pH 5.5 (5.0-9.0) Urine Specific [place] 1.025 (1.001-1.035) Urine Protein Negative (Negative) Urine Ketones Negative (Negative) Urine Blood Negative /uL (Negative) Urine Nitrite Negative (Negative) Urine Bilirubin Negative (Negative) Urine Urobilinogen Normal mg/dL (Negative) Urine Leukocyte Esterase Negative /uL (Negative) Urine RBC 1 /hpf (0 - 3) Urine WBC <1 /hpf (0 - 3) Urine Squamous Epithelial Cells None seen /hpf (<5) Urine Bacteria None seen /hpf (None Seen) Urine Mucus Few (None Seen) Urine Glucose Normal mg/dL (Normal) Labs and/or images reviewed: Labs reviewed by me, Image(s) reviewed by me Assessment/Plan Assessment/Plan Impression: -toxic metabolic encephalopathy, probable unintentional overdose on prescribed medications -chronic pain syndrome -coronary artery disease with previous CABG -atrial flutter -probable acute on chronic systolic heart failure -accelerated hypertension Plan: -events: Patient more alert today. Reporting severe lower extremity pain, paresthesia, as well as noticeable back deformity. -CT scan of the lumbar spine. -diuresis -rate control with Toprol-XL -continue Eliquis stop Lovenox -cardiology consultation: Indications reviewed -restart pain medication now the patient was alert and oriented -continue goal-directed medical therapy for heart failure -repeat labs and chest x-ray in a.m. Total time spent with patient discussing and formulating plan of care: 35 minutes. This medical document was created using an electronic medical record system with [employer] dictation system. Although this document has been carefully reviewed, there may still be some phonetic and typographical errors. These areas are purely typographical due to imperfections of the software programs, and do not reflect any compromise in the patient's medical care. Plan discussed with: Patient, Spouse, Other (RN) My Orders Orders - LIAT IGNACIO NP Procedure Category Date Status Time Apixaban (Eliquis) PHA 04/17/24 In Process 22:00 Hydrocodone-Acet PHA 04/17/24 In Process 5/325mg Tab ([place] 15:45 Acetaminophen Tablet PHA 04/17/24 In Process (Tylenol Tablet) 15:45 Chest Portable XY 04/18/24 Resulted 04:00 Ls Spine Wo Contrast CT 04/18/24 Verified 15:11 Date of Service: Apr 18, 2024 Billing Provider: LIAT IGNACIO NP Common Visit Codes: [id number] INP/OBS CARE(HIGH) LIAT IGNACIO NP Apr 18, 2024 15:17
--- NOTE | 2024-04-18 16:24 | DVH ---
CLINICAL INDICATION: Right hip pain, s/p fall TECHNIQUE: 3 pelvis and XY R HIP COMPLETE XRAY Comparison: None FINDINGS/IMPRESSION: : There is no evidence of acute fracture or dislocation. Moderate to severe degenerative changes of bilateral hips.
--- NOTE | 2024-04-18 17:16 | DVH ---
EXAM: CT LS SPINE WO CONTRAST INDICATION: back pain, with lower ext. Paresthesia EXAM DATE: 04/18/2024 03:38 PM COMPARISON: CT HEAD WITHOUT CONTRAST on DOS: 04/16/24, CT HEAD WITHOUT CONTRAST on DOS: 04/18/23 TECHNIQUE: Multiple axial CT images of the lumbar spine were obtained using bone algorithm. Axial and coronal reformatting was done. Bone and soft tissue windows were reviewed. Radiation Dose Information: CT Dose: CTDI volume is 8.07 mGy. Dose-length product is 249.52 mGy*cm Findings: There are 5 nonrib-bearing lumbar vertebrae. There is no evidence of an acute fracture. Mild degenerative changes. Grade 1 retrolisthesis of L1 on L2 and L2 on L3. Grade 1 anterolisthesis of L4 on L5. Erosive changes of the inferior endplate of L2 and superior endplate of L3. No neuroforaminal narrowing. No spinal canal stenosis. The paraspinal soft tissues appear within normal limits. The visualized portions of the abdomen are u nremarkable. T12-L1: Severe degenerative disc disease. L1-L2: Severe degenerative disc disease. Severe bilateral neuroforaminal stenosis. L2-L3: Severe degenerative disc disease. Severe left and mild right neuroforaminal stenosis. L3-L4: Normal L4-L5: Normal L5-S1: Normal Impression: 1. No evidence of an acute fracture. 2. Erosive changes of the inferior endplate of L2 and superior endplate of L3. Consider a contrast en hanced MRI to exclude discitis osteomyelitis as clinically indicated. 3. Mild degenerative changes of the lumbar spine with multilevel severe disc disease and neuroforamin al stenosis, most prominent at L1/L2. 4. Grade 1 retrolisthesis of L1 on L2 and L2 on L3. Grade 1 anterolisthesis of L4 on L5.
--- NOTE | 2024-04-18 19:17 | DVHPN2 ---
Consult Progress Note Subjective Other Systems: Medsurg status, not on telemetry monitoring. Patient awake and alert, able to answer all questions appropriately. Complains of hip and back pain. Objective vital signs Vital Sign Date Time Temp Pulse Resp B/P (MAP) Pulse Ox O2 Delivery O2 Flow Rate FiO2 04/18/24 16:30 97.5 85 19 127/79 (95) 98 97.5 04/18/24 08:00 Room Air* 0 21 Total Intake and Output 04/17/24 04/17/24 04/18/24 15:00 23:00 07:00 Intake Total 240 ml Output Total 1500 ml Balance -1260 ml medications Current Medications Medications Dose Ordered Sig/Tab Route Start Time Stop Time Status Last Admin Dose Admin Clonidine HCl 0.1 mg Q6HP PRN PO 04/17/24 04:00 04/17/24 23:42 0.1 MG Ondansetron HCl 4 mg Q4HP PRN IV 04/17/24 04:00 Metoprolol Succinate 25 mg DAILY PO 04/17/24 14:45 04/18/24 10:06 25 MG Furosemide 20 mg DAILY PO 04/18/24 10:00 04/18/24 10:07 20 MG Apixaban 5 mg BID PO 04/17/24 22:00 04/18/24 10:04 5 MG Acetaminophen/ Hydrocodone Bitart 1 tab Q6HPRN PRN PO 04/17/24 15:45 04/18/24 13:32 1 TAB Acetaminophen 500 mg Q8HP PRN PO 04/17/24 15:45 Sacubitril/ Valsartan 1 tab BID PO 04/17/24 22:00 04/18/24 10:04 1 TAB Empaglifozin 10 mg DAILY PO 04/18/24 10:00 04/18/24 10:04 10 MG Examination: GENERAL:Normal, LUNGS:Normal, CVS:Normal laboratory and microbiology Laboratory Tests 04/18/24 04:44 04/16/24 18:32 Test 04/18/24 04:44 Range/Units Serum Glucose 101 74-106 mg/dL Problem List/Assessment/Plan Problem List/Assessment/Plan Acute on chronic decompensated HFrEF, NYHA class II Ischemic cardiomyopathy Severe coronary artery disease status post quintuple vessel CABG Paroxysmal atrial fibrillation, stage 3A (on Eliquis) Chronic pain syndrome Plan/recommendations (): * Echocardiogram reveals EF 35-40% with severely dilated left ventricle, RVSP 45 mmHg * Initiate GDMT for CHF as tolerated * Consider spironolactone if potassium permits * Strict intake and output, daily weights, maintain fluid restriction * Preload and afterload reduction * [id number] VASc score: 5 points HAS-BLED score: 1 point * Continue NOAC therapy Eliquis * Continue beta-kevyn for rate control Patient seen and examined at bedside with . Thank you for allowing us to care for this patient. Please call with any questions or concerns. This medical document was created using an electronic medical record system with voice recognition software and computerized dictation system. Although this document has been carefully reviewed, there might still be some phonetic and typographical errors. Occasional wrong-word or ``sound-alike substitutions may have occurred due to the inherent limitations of voice recognition software. These areas are purely typographical due to imperfections of the software programs and do not reflect any compromise in the patient's medical care. Please read the chart carefully and recognize, using context, where these substitutions have occurred. Plan discussed with: Patient, Spouse Date of Service: Apr 18, 2024 Billing Provider: GIULIANA GRECO MD Common Visit Codes: [id number] INP/OBS CARE(MOD) PATRIA MONET PERCUSSION TUNER Apr 18, 2024 19:17
[2024-04-19 01:00] VITALS: BP 109/70; PULSE 71; RESP 18; TEMP 98.4; O2SAT 94
[2024-04-19 05:00] VITALS: BP 165/85; PULSE 91; RESP 18; TEMP 98; O2SAT 96
[2024-04-19 08:02] VITALS: O2SAT 94
[2024-04-19 08:47] VITALS: BP 135/85; PULSE 80; RESP 18; TEMP 98.1; O2SAT 96
[2024-04-19 12:53] VITALS: BP 129/76; PULSE 77; RESP 18; TEMP 98; O2SAT 98
--- NOTE | 2024-04-19 12:56 | DVHDS2 ---
Discharge Summary Date of Admission Apr 17, 2024 at 03:23 Date of Discharge: Apr 19, 2024 Admitting Diagnosis Metabolic encephalopathy Labs/Diagnostic Data: Laboratory Results Test 04/18/24 04:44 04/17/24 04:11 04/16/24 23:04 04/16/24 19:29 Sodium Level 139 mmol/L (136-145) Potassium Level 3.5 mmol/L (3.5-5.1) Chloride Level 104 mmol/L (98-107) Carbon Dioxide Level 29 mmol/L (20-31) Anion Gap 6 (5-15) Blood Urea Nitrogen 15 mg/dL (9-23) Creatinine 0.78 mg/dL (0.700-1.30) Glomerular Filtration Rate Calc 93 mL/min (>90) BUN/Creatinine Ratio 19.2 (10.0-20.0) Serum Glucose 101 mg/dL (74-106) Calcium Level 8.6 mg/dL (8.7-10.4) B-Type Natriuretic Peptide 881.24 pg/mL (0-100) Urine Color Yellow (Yellow) Urine Clarity Clear (Clear) Urine pH 5.5 (5.0-9.0) Urine Specific [place] 1.025 (1.001-1.035) Urine Protein Negative (Negative) Urine Ketones Negative (Negative) Urine Blood Negative /uL (Negative) Urine Nitrite Negative (Negative) Urine Bilirubin Negative (Negative) Urine Urobilinogen Normal mg/dL (Negative) Urine Leukocyte Esterase Negative /uL (Negative) Urine RBC 1 /hpf (0 - 3) Urine WBC <1 /hpf (0 - 3) Urine Squamous Epithelial Cells None seen /hpf (<5) Urine Bacteria None seen /hpf (None Seen) Urine Mucus Few (None Seen) Urine Glucose Normal mg/dL (Normal) Urine Opiates Screen Pos (NEGATIVE) Urine Fentanyl Screen Neg (NEGATIVE) Urine Barbiturates Screen Neg (NEGATIVE) Urine Phencyclidine Screen Neg (NEGATIVE) Urine Amphetamines Screen Neg (NEGATIVE) Urine Benzodiazepines Screen Neg (NEGATIVE) Urine Cocaine Screen Neg (NEGATIVE) Urine Cannabinoids Screen Neg (NEGATIVE) Troponin I High Sensitivity 32 ng/L (</=54) Test 04/16/24 18:32 White Blood Count 7.0 10^3/uL (4.4-10.8) Red Blood Count 4.12 10^6/uL (4.5-5.90) Hemoglobin 13.5 g/dL (13.5-17.5) Hematocrit 39.9 % (41.0-53.0) Mean Corpuscular Volume 96.8 fL (80.0-100.0) Mean Corpuscular Hemoglobin 32.8 pg (28.0-32.0) Mean Corpuscular Hemoglobin Concent 33.9 g/dL (32.0-36.0) Red Cell Distribution Width 14.7 % (11.8-14.3) Platelet Count 343 10^3/uL (140-450) Mean Platelet Volume 8.3 fL (6.9-10.8) Neutrophils (%) (Auto) 72.2 % (37.0-80.0) Lymphocytes (%) (Auto) 19.1 % (10.0-50.0) Monocytes (%) (Auto) 6.8 % (0.0-12.0) Eosinophils (%) (Auto) 1.3 % (0.0-7.0) Basophils (%) (Auto) 0.6 % (0.0-2.0) Neutrophils # (Auto) 5.1 10 ^3/uL (1.6-8.6) Lymphocytes # (Auto) 1.3 10 ^3/uL (0.4-5.4) Monocytes # (Auto) 0.5 10 ^3/uL (0-1.3) Eosinophils # (Auto) 0.1 10 ^3/uL (0-0.8) Basophils # (Auto) 0 10 ^3/uL (0-0.2) Nucleated Red Blood Cells 0.0 % Total Bilirubin 1.0 mg/dL (0.2-1.0) Aspartate Amino Transferase (AST) 38 U/L (13-40) Alanine Aminotransferase (ALT) 24 U/L (7-40) Alkaline Phosphatase 347 U/L (46-116) Ammonia < 10 umol/L (11-32) Total Protein 6.5 g/dL (5.7-8.2) Albumin 3.3 g/dL (3.2-4.8) Other Laboratory Tests 04/18/24 04:44 04/16/24 18:32 Brief Hx & Hospital Course: History of Present Illness 73-year-old male presents for evaluation of altered mental status. Patient was noted to be progressively become lethargic by family members over the past couple of days. Currently patient is alert oriented x3. Denies headache or blurred vision. No unilateral weakness. He was noted to be hypertensive on arrival in the 180s. Denies chest pain or palpitations. No other acute complaints. Course of hospitalization: CT scan of the head was negative for any acute pathology. Patient was mentation improved without any intervention. He was now alert and oriented x4. Patient was found to be in decompensated systolic heart failure. Cardiology consultation was obtained. Patient was blood pressure has improved as well as his pulmonary vascular congestion noted on chest x-ray. Goal-directed medical therapy was started. Patient was complaining of a mechanical fall approximately three weeks ago with residual pain to his back as well as his hips. Bilateral hip x-rays were performed which revealed degenerative joint disease. Patient was also found to have lumbar spinal stenosis, [id number]. Given these chronic findings patient was cleared for discharge. He was instructed to follow up with his PCP and obtain referrals for orthopedic surgery as well as a spinal surgeon regarding the findings on the CT scan and x-rays. He is to continue all previous home medications other than the Flexeril that was recently prescribed him for his back pain. Patient was agreeable with discharge plan. All questions answered. Physical examination General: Alert and Oriented x3. No acute distress. Well-nourished. Eyes: EOMI. Anicteric. HENT: Moist mucous membranes. Lungs: Clear to auscultation bilaterally. No accessory muscle use. Cardiovascular: Regular rate and rhythm. No murmur. No JVD. Abdomen: Soft, non-tender and non-distended. No palpable masses. Extremities: No edema. Non-tender. Skin: No rashes or lesions. Warm. Neurologic: No focal neurological deficits. CN II-XII grossly intact, but not individually tested. Psychiatric: Cooperative. Appropriate mood and affect. Total time spent with patient discussing and formulating plan of care: 35 minutes. This medical document was created using an electronic medical record system with [employer] system. Although this document has been carefully reviewed, there may still be some phonetic and typographical errors. These areas are purely typographical due to imperfections of the software programs, and do not reflect any compromise in the patient's medical care. Consults/Reason for consult Cardiology: Decompensated heart failure Condition at Discharge: Guarded Final Diagnosis/Problems List Toxic metabolic encephalopathy secondary to prescribed medication overdose Secondary Diagnosis: -chronic pain syndrome -coronary artery disease with previous CABG -atrial flutter -probable acute on chronic systolic heart failure -accelerated hypertension Discharge Disposition: Home Discharge Instruct/Medications Diet: Cardiac 2g Na,low cholest Activity: No Restrictions, As Tolerated Follow Up/Referral: Discharge Clinic in one week Follow up with established PCP Obtain outpatient appointment/referral with orthopedic surgeon as well as spinal surgeon Medications: Continue all previous home medications. Recommend to hold off taking Flexeril for back pain 36 Discharge Statement: "Patient was advised to return to the ER or call 911 if any headaches, dizziness, shortness of breath, chest pain, abdominal pain, bleeding, fevers, or worsening of medical condition. Patient was counseled about treatment plan, medications, possible side effects, patientverbalized understanding. All questions were answered to the best of my ability. This discharge took greater then 30 minutes in planning, reviewing documentation, counseling the patient, and discussing with other team members." ASSESSMENT ASSESSMENT Assessment Toxic metabolic encephalopathy secondary to prescribed medication overdose Date of Service: Apr 19, 2024 Billing Provider: LIAT IGNACIO NP Common Visit Codes: 22457-KUY/OBS DISCH DAY >30min LIAT IGNACIO NP Apr 19, 2024 12:56
[2024-04-19] MEDS: ACETAMINOPHEN 500 MG TAB PO PRN (14:20)
== END 2024-04-19 15:30 | disposition home or self-care (01) | DRG 917 ==
LOC: ER 17:40 → EDBD 17:40 → OVERFLOW 04-17 03:23 → WEST WING 04-17 21:35
PROVIDERS: ADMIT Nurse Practitioner; ATTEND Nurse Practitioner Acute Care
DX: T50.991A Poisoning by other drugs, medicaments and biological substances, accidental (unintentional), initial encounter (principal); G92.8 Other toxic encephalopathy; I50.23 Acute on chronic systolic (congestive) heart failure; I16.9 Hypertensive crisis, unspecified; I48.92 Unspecified atrial flutter; G89.4 Chronic pain syndrome; I11.0 Hypertensive heart disease with heart failure; I25.10 Atherosclerotic heart disease of native coronary artery without angina pectoris; I48.0 Paroxysmal atrial fibrillation; E78.5 Hyperlipidemia, unspecified; I27.20 Pulmonary hypertension, unspecified; M48.061 Spinal stenosis, lumbar region without neurogenic claudication; I25.5 Ischemic cardiomyopathy; Z95.1 Presence of aortocoronary bypass graft; Y92.89 Other specified places as the place of occurrence of the external cause
CPT/HCPCS: 36415; 70450; 71045; 72131; 73502; 80048; 80053; 80307; 81001; 82140; 83880; 84484; 85025; 93005; 93306; G0378